=== PATIENT | female | born 1940 | race Two or more races ===

== ENCOUNTER → 2024-09-03 | Outpatient (CLI) | payer OTHER, MEDICAID, SELFPAY ==
--- NOTE | 2024-09-03 08:31 | XR_ITS ---
EXAMINATION: Ankle, left 3 views . Technique: Ankle AP, oblique, lateral 3 views Date and time of exam: September 03, 2024 0834 hours INDICATIONS: Left ankle pain 3 weeks. FINDINGS: Significant osteopenia. 6 mm plantar bony calcaneal spur. No fracture IMPRESSION: 6 mm plantar bony calcaneal spur Mild narrowing tibiotalar joint
--- NOTE | 2024-09-03 08:39 | XR_ITS ---
Examination: Foot, left, 3 views Technique: AP, oblique, lateral views foot, 3 views Date and time of exam: September 03, 2024 0848 hours INDICATIONS: Left foot pain beginning 3 weeks ago. FINDINGS: Moderate bunion deformity Moderate osteoarthritis first metatarsophalangeal joint No acute fracture 6 mm plantar bony calcaneal spur IMPRESSION: Moderate bunion deformity Moderate osteoarthritis first metatarsophalangeal joint 6 mm plantar bony calcaneal spur
== END | disposition home or self-care (01) ==
LOC: SDIM 08:17
PROVIDERS: PCP Family Medicine; Referring Provider Nurse Practitioner Family; Visit Provider Nurse Practitioner Family
DX: M77.32 Calcaneal spur, left foot (principal); M25.872 Other specified joint disorders, left ankle and foot; M21.612 Bunion of left foot; M19.072 Primary osteoarthritis, left ankle and foot
CPT/HCPCS: 73610; 73630

== ENCOUNTER → 2025-01-12 | Outpatient (CLI) | payer OTHER, MEDICAID, SELFPAY ==
--- NOTE | 2025-01-12 14:19 | XR_ITS ---
Examination: Wrist, right 3 views Technique: Wrist AP, oblique, lateral 3 views Date and time of exam: January 12, 2025, 1432 hours INDICATIONS: Postop reduction wrist fracture December 07, 2024 FINDINGS: Severe osteopenia Operative reduction internal fixation fracture distal radial metaphysis with satisfactory alignment Orthopedic hardware satisfactory position Partial healing IMPRESSION: Partial healing fracture distal radial metaphysis with satisfactory alignment
== END | disposition home or self-care (01) ==
PROVIDERS: PCP Family Medicine; Referring Provider Orthopaedic Surgery; Visit Provider Orthopaedic Surgery
DX: S52.91XA Unspecified fracture of right forearm, initial encounter for closed fracture (principal); X58.XXXA Exposure to other specified factors, initial encounter; Z98.890 Other specified postprocedural states
CPT/HCPCS: 73110

== ENCOUNTER 2025-02-16 09:30 | Outpatient (RCR) | payer OTHER, MEDICAID, SELFPAY ==
--- NOTE | 2025-02-02 09:16 | PTNOTE_ITS ---
PT OP Initial Eval Patient Information Outpatient Physical Therapy Treatment Date: 02/02/25 Visit Reasons: RIGHT WRIST SURGERY Medical Diagnosis: Z98.890; Z87.81 Treatment Dx #1: Right Wrist Mobility Deficits Treatment Dx #2: Right Wrist Weakness Start of Care: 02/02/25 Date of Onset: 12/07/24 Smoking Status Smoking Status: Never smoker Initial Assessment Subjective: Pt is a 84 y/o female s/p right distal ORIF 12/07/24 secondary to colles fracture from a fall. Pt still has pain (7/10). Pt was in a splint for several weeks after the surgery. Pt has limitation with gripping, lifting, chores, self care, cooking, cleaning, performing recreational activities. Pt also seems to notice right shoulder pain after she fell and will follow up with PCP for further consultation Objective: Right Wrist AROM Flexion: 25 deg Extension: 10 deg Pronation: 90 deg Supination: 90 deg Ulnar Deviation: 5 deg Radial Deviation: neutral Right Wrist MMTs: grossly 2-/5 Accounting Manager Controller Strength R: NT L: unable Right 1st-5th digit flexion: all motions are 20 % towards end range Assessment: Pt demonstrate right wrist mobility deficits s/p surgery leading to difficulty with ADLs. Pt will benefit from physical therapy to increase ROM, strength, and work on overall mobility. Short Term and Head Refrigeration Engineer Goals 1) Increase right wrist AROM WFL in 8 wks to be able to perform chores 2) Increase right wrist MMTs grossly to 3+/5 in 8 wks to be able to perform self care activities 3) Decrease wrist pain to 2/10 in 8 wks to be able to cook and clean 4) Increase right shoulder AROM WFL in 8 wks to be able to perform overhead motions 5) Indep with HEP Treatment Plan 1) Manual Therapy 2) Therapeutic Activities 3) Therapeutic Exercises 4) Modalities (ice, heat) Frequency and Duration: 2 x wk for 8 wks Certification Dates: 02/02/25 to 05/03/25 Procedure Charges OP PT Eval Mod Complex 30 minutes: Yes
--- NOTE | 2025-02-03 11:42 | PT.ODAYNRPT ---
PT Outpatient Daily Note OP Daily Note Outpatient Physical Therapy Treatment Date: 02/03/25 Visit Reasons: RIGHT WRIST SURGERY Subjective: Pt was able to hold her mirror to help groom this morning. Pt has been stretching the finger at home. Objective: Please see flow chart for list of ther ex performed Assessment: progressing with finger flexion AROM; tolerate passive stretching with minimal pain Plan: Continue with PT Length of Time (minutes) of Treatment: 30 Minutes Procedure Charges Therapeutic Exercise 30 minutes: Yes
--- NOTE | 2025-02-08 08:36 | PTNOTE_ITS ---
PT Outpatient Daily Note OP Daily Note Outpatient Physical Therapy Treatment Date: 02/08/25 Visit Reasons: RIGHT WRIST SURGERY Subjective: Pt reports R wrist is painful and stiff. Objective: Please see flow sheet for ther ex list. Assessment: Pt demonstrates poor ROM and high pain response. Pt educated on importance of performing HEP and instructed on hand and digit exercises to work on improving food processing plant manager mobility. Plan: Continue with POC. Length of Time (minutes) of Treatment: 30 Minutes WATER TAXI BOAT MATE Service Modifier Method I: Divide the number of min of care provided by the WATER TAXI BOAT MATE/COOKING INSTRUCTOR by the total min of care provided then multiply by 100. If greater than 11 percent modifier is required. Method II: Divide the total time of care provided to patient by 10 (round to the nearest whole number) and add 1 min. to set the minimum time requirement. If treatment total was 60 min., then 10% of 6 min PT CQ modifier applied: CQ Modifier applied Procedure Charges Therapeutic Exercise 30 minutes: Yes
--- NOTE | 2025-02-14 11:38 | PT.ODAYNRPT ---
PT Outpatient Daily Note OP Daily Note Outpatient Physical Therapy Treatment Date: 02/14/25 Visit Reasons: RIGHT WRIST SURGERY Subjective: Pt's wrist is better. Pt still unable to make a fist due to finger stiffness. According to patient she does HEP every night Objective: Please see flow chart for list of ther ex performed Assessment: patient encourage to continue finger flexion stretching at home to improve digits flexion AROM. Pt was able to resume yellow gripper today with more recruitment of the fingers into flexion Plan: Continue with PT Length of Time (minutes) of Treatment: 30 Minutes Procedure Charges Therapeutic Exercise 30 minutes: Yes
--- NOTE | 2025-02-16 10:56 | PT.ODAYNRPT ---
PT Outpatient Daily Note OP Daily Note Outpatient Physical Therapy Treatment Date: 02/16/25 Visit Reasons: RIGHT WRIST SURGERY Subjective: Pt's hand is a little better. Pt still unable to make a full fist or homemade tortilla Objective: Please see flow chart for list of ther ex performed Assessment: continue to slowly progress with finger flexion AROM; Pt is unable to make full fist secondary to extensor tendon tightness Plan: Continue with PT Length of Time (minutes) of Treatment: 30 Minutes Procedure Charges Therapeutic Exercise 30 minutes: Yes
== END 2025-02-16 23:59 | disposition home or self-care (01) ==
LOC: CPTX 09:30
PROVIDERS: PCP Orthopaedic Surgery; Referring Provider Orthopaedic Surgery; Visit Provider Orthopaedic Surgery
DX: M25.531 Pain in right wrist (principal); R53.1 Weakness; S52.531D Colles' fracture of right radius, subsequent encounter for closed fracture with routine healing; W19.XXXD Unspecified fall, subsequent encounter
CPT/HCPCS: 97110; 97162